=== PATIENT | female | born 1970 | race Caucasian/White ===

== ENCOUNTER 2020-10-09 07:25 | Emergency (ER) | payer OTHER ==
[~2020-10-09 07:25] MED LIST: ALDACTONE25 MG PO; AUGMENTIN 875-1 EACH PO; CYMBALTA60 MG PO; ELAVIL25 MG PO; ETODOLAC500 MG PO; HUMULIN 70100 UNIT/1 SUBD; LANTUS SOL100 UNIT/1 SC; MEDROL 4MG DOSEP4 MG PO; NEURONTIN300 MG PO; NORCO 10-325 T1 EACH PO; NORCO 5-325 TA1 EACH PO; ONDANSETRON HCL4 MG PO; PROTONIX20 MG PO; PROVENTIL HFA6.7 GM INH; REPATHA SY140 MG/1 M IM; ROBITUSSIN W/COD5 ML PO; VICTOZA 3-0.6 MG/0.1 SUBD; VITAMIN D32000 UNIT PO; ZESTRIL5 MG PO
[2020-10-09 10:45] LABS: BASOPHIL 0.9 % (0-2); EOSINOPHIL 3.1 % (0-5); HCT 35.2 % (37.0-47.0); HGB 12.1 g/dl (12.5-16.0); LYMPHOCYTE 40.5 % (15-48); MCHC 34.4 g/dL (32.0-36.0); MCV 90.3 fL (78.0-100.0); MONOCYTE 9.4 % (0-12); MPV 10.4 fL (6.0-9.5); NEUTROPHIL 45.8 % (41-80); NRBC 0; PLT 229 K/uL (150-400); RDW 12.3 % (11.5-14.0); WBC 9.8 K/uL (4.0-10.5)
[2020-10-09 10:52] LABS: BUN/CREAT RATIO (CALC) 15.7 RATIO; CREATININE 0.89 mg/dL (0.51-0.95); POTASSIUM 4.3 mmol/L (3.5-5.1)
[2020-10-09 11:40] LABS: BILIRUBIN NEGATIVE (NEGATIVE); BLOOD 1+ Ery/uL (NEGATIVE); CLARITY CLEAR (CLEAR); COLOR YELLOW (YELLOW); GLUCOSE (U) 1+ mg/dL (NORMAL); LEUKOCYTES NEGATIVE Leu/uL (NEGATIVE); NITRITE NEGATIVE (NEGATIVE); PROTEIN 3+ mg/dL (NEGATIVE); SPECIFIC GRAVITY >=1.030 (1.001-1.030); UROBILINOGEN 0.2 mg/dL (0.2-1.0); pH 5.5 (5.0-9.0)
[2020-10-09 11:49] LABS: BACTERIA 4+; URINARY RBC RARE; URINARY WBC 20-50
[2020-10-09] MEDS ORDERED: MACROBID100 MG PO (12:45)
[2020-10-09] MEDS ORDERED: DICLOFENAC SODI75 MG PO (12:45)
== END 2020-10-09 13:30 | disposition home or self-care (01) ==
LOC: FER 07:25
PROVIDERS: Emergency Medicine
DX: N39.0 Urinary tract infection, site not specified (principal); E11.9 Type 2 diabetes mellitus without complications; Z99.81 Dependence on supplemental oxygen; Z86.16 Personal history of COVID-19
CPT/HCPCS: 36415; 72100; 72170; 80048; 81001; 85025; 96372; J0696; J1885; J3360

== ENCOUNTER 2020-10-14 17:37 | Emergency (ER) | payer OTHER ==
[~2020-10-14 17:37] MED LIST changes: +DICLOFENAC SODI75 MG PO; +MACROBID100 MG PO
[2020-10-14 18:46] LABS: BASOPHIL 0.8 % (0-2); EOSINOPHIL 1.1 % (0-5); HCT 40.4 % (37.0-47.0); HGB 13.7 g/dl (12.5-16.0); LYMPHOCYTE 34.4 % (15-48); MCH 30.4 pg (25.0-31.0); MCHC 33.9 g/dL (32.0-36.0); MCV 89.6 fL (78.0-100.0); MONOCYTE 8.3 % (0-12); MPV 10.4 fL (6.0-9.5); NRBC 0; PLT 294 K/uL (150-400); RBC 4.51 M/uL (4.20-5.40); RDW 12.1 % (11.5-14.0); WBC 11.8 K/uL (4.0-10.5)
[2020-10-14 19:11] LABS: ALBUMIN 2.8 g/dL (3.4-5.0); BILIRUBIN - TOTAL 0.5 mg/dL (0.2-1.0); BUN/CREAT RATIO (CALC) 16.2 RATIO; CREATININE 1.3 mg/dL (0.51-0.95); GLOBULIN (CALCULATION) 3.7 g/dL; POTASSIUM 3.8 mmol/L (3.5-5.1); TOTAL PROTEIN 6.5 g/dL (6.4-8.2)
[2020-10-14 19:12] LABS: INR 1.03 (0.9-1.2); PROTHROMBIN TIME 12.8 SECONDS (11.4-13.6); PTT 25.6 SECONDS (22.2-34.7)
[2020-10-14 19:16] LABS: LACTIC ACID 1.4 mmol/L (0.4-1.9)
[2020-10-14 21:00] LABS: BILIRUBIN 1+ mg/dL (NEGATIVE); BLOOD TRACE-INTACT Ery/uL (NEGATIVE); CLARITY CLOUDY (CLEAR); COLOR YELLOW (YELLOW); GLUCOSE (U) 1+ mg/dL (NORMAL); LEUKOCYTES TRACE Leu/uL (NEGATIVE); NITRITE NEGATIVE (NEGATIVE); PROTEIN 3+ mg/dL (NEGATIVE); SPECIFIC GRAVITY >=1.030 (1.001-1.030); UROBILINOGEN 0.2 mg/dL (0.2-1.0)
[2020-10-14 21:12] LABS: BACTERIA TRACE; URINARY RBC RARE
[2020-10-14] MEDS ORDERED: PREDNISONE 20MG20 MG PO (22:26)
[2020-10-14] MEDS ORDERED: ONDANSETRON ODT4 MG PO (22:26)
== END 2020-10-14 23:09 | disposition home or self-care (01) ==
LOC: FER 17:37
PROVIDERS: Emergency Medicine
DX: J98.8 Other specified respiratory disorders (principal); R91.8 Other nonspecific abnormal finding of lung field; J44.9 Chronic obstructive pulmonary disease, unspecified; Z86.16 Personal history of COVID-19; Z20.822 Contact with and (suspected) exposure to COVID-19
CPT/HCPCS: 36415; 36600; 71045; 71275; 80053; 81001; 82803; 83605; 83880; 85025; 85610; 85730; 87040; 93005; J2405; J7030; Q9967; U0002

== ENCOUNTER 2020-11-09 17:53 | Emergency (ER) | payer OTHER ==
[~2020-11-09 17:53] MED LIST changes: +ONDANSETRON ODT4 MG PO; +PREDNISONE 20MG20 MG PO
[2020-11-10 03:16] LABS: BILIRUBIN 1+ mg/dL (NEGATIVE); BLOOD 1+ Ery/uL (NEGATIVE); CLARITY CLEAR (CLEAR); COLOR YELLOW (YELLOW); GLUCOSE (U) 1+ mg/dL (NORMAL); LEUKOCYTES 1+ Leu/uL (NEGATIVE); NITRITE NEGATIVE (NEGATIVE); PROTEIN 3+ mg/dL (NEGATIVE); SPECIFIC GRAVITY >=1.030 (1.001-1.030); UROBILINOGEN 0.2 mg/dL (0.2-1.0); pH 5.5 (5.0-9.0)
[2020-11-10 03:22] LABS: BACTERIA 3+
[2020-11-10] MEDS ORDERED: MACROBID100 MG PO (06:08)
== END 2020-11-10 06:09 | disposition home or self-care (01) ==
LOC: FER 17:53
PROVIDERS: Emergency Medicine
DX: N39.0 Urinary tract infection, site not specified (principal); K59.00 Constipation, unspecified; M54.41 Lumbago with sciatica, right side; I10 Essential (primary) hypertension
CPT/HCPCS: 81001; 87088